=== PATIENT | male | born 1945 | race Asian ===

== ENCOUNTER 2018-07-17 10:30 | Emergency (ER) | payer OTHER ==
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
--- NOTE | 2018-07-17 10:50 | ER ---
Nurse's Notes [facility] Name: Pedro Ruelas Age: 72 yrs Sex: Male : 1945 Arrival Date: 07/17/2018 Time: 10:31 Bed 14 Private MD: Diagnosis: Dementia in other diseases classified elsewhere Presentation: 07/17 10:32 Presenting complaint: EMS states: pt was playing dominos at [facility], he threw the tw2 dominos on the floor, staff called because he was yelling saying he hurts. Transition of care: patient was received from another setting of care (long-term care facility), [facility]. Onset of symptoms was July 17, 2018. Risk Assessment: Do you want to hurt yourself or someone else? Patient reports no desire to harm self or others. Initial Sepsis Screen: Does the patient meet any 2 criteria? No. Patient's initial sepsis screen is negative. Does the patient have a suspected source of infection? No. Patient's initial sepsis screen is negative. Care prior to arrival: None. 10:32 Method Of Arrival: EMS: [facility] tw2 10:32 Acuity: ARACELI 4 tw2 Historical: - Allergies: 10:40 No Known Allergies; tw2 - Home Meds: 10:40 aspirin 81 mg Oral chew 1 tab once daily [Active]; atorvastatin 10 mg oral tab 1 tab tw2 once daily [Active]; donepezil 10 mg oral tab 1 tab once daily [Active]; escitalopram oxalate 10 mg oral tab 1 tab once daily [Active]; metoprolol tartrate 25 mg Oral tab 1 tab once daily [Active]; Namenda XR 14 mg oral CSpX 1 cap once daily [Active]; Provera 10 mg oral tab 5 tab once daily [Active]; Depakote Sprinkles 125 mg Oral cpSP 1 caps every 12 hours [Active]; - PMHx: 10:40 Hyperlipidemia; GERD; Alzheimers; tw2 - Immunization history:: Adult Immunizations up to date. - Social history:: Smoking status: Patient/guardian denies using tobacco. - Ebola Screening: : Patient denies travel to an Ebola-affected area in the 21 days before illness onset. Screenin:35 Abuse screen: Denies threats or abuse. Nutritional screening: No deficits noted. tw2 Tuberculosis screening: No symptoms or risk factors identified. Fall Risk Secondary diagnosis (15 points) Alzheimer's. Assessment: 10:40 General: Appears in no apparent distress. Behavior is calm, cooperative, appropriate tw2 for age. Pain: Unable to use pain scale. Patient appears quiet, calm. Neuro: Level of Consciousness is awake, alert, obeys commands, Oriented to person, place, situation. Cardiovascular: Heart tones S1 S2 Patient's skin is warm and dry. Respiratory: Airway is patent Respiratory effort is even, unlabored, Respiratory pattern is regular, symmetrical, Breath sounds are clear bilaterally. GI: No signs and/or symptoms were reported involving the gastrointestinal system. Abdomen is flat, Bowel sounds present X 4 quads. : No signs and/or symptoms were reported regarding the genitourinary system. EENT: No signs and/or symptoms were reported regarding the EENT system. Derm: No signs and/or symptoms reported regarding the dermatologic system. Musculoskeletal: Circulation, motion, and sensation intact. Range of motion: intact in all extremities. 10:50 Reassessment: spoke with SIDNEY Rizvi at [facility], they will arrange transportation tw2 back to their facility, report and update given to SIDNEY Rizvi at [facility] at this time. 11:15 Reassessment: Patient appears in no apparent distress at this time. No changes from previously documented assessment. Patient and/or family updated on plan of care and expected duration. Pain level reassessed. Patient is alert, oriented x 3, equal unlabored respirations, skin warm/dry/pink. 12:15 Reassessment: Patient appears in no apparent distress at this time. No changes from previously documented assessment. Patient and/or family updated on plan of care and expected duration. Pain level reassessed. Patient is alert, oriented x 3, equal unlabored respirations, skin warm/dry/pink. 12:16 Reassessment: SIDNEY Boyer called to speak with JO ANN at [facility] at this time, as pts ss transportation has not been arranged and pt has been ready to be discharged since 1050 this morning. Spoke with Estrella at [facility] and she will "get that done". Vital Signs: 10:34 BP 110 / 73; Pulse 99; Resp 17; Temp 98.6(O); Pulse Ox 100% on R/A; tw2 11:00 BP 122 / 72; Pulse 67; Resp 17; Pulse Ox 97% on R/A; tw2 11:58 BP 132 / 84; Pulse 67; Resp 17; Pulse Ox 98% on R/A; tw2 ED Course: 10:31 Patient arrived in ED. tw2 10:32 [facility] kb 10:32 Erasmo Cabral MD is Attending Physician. kb 10:33 Triage completed. tw2 10:34 Arm band placed on. tw2 10:34 Bed in low position. Call light in reach. Side rails up X2. Pulse ox on. NIBP on. Warm tw2 blanket given. 10:47 Rosalind Cota, SIDNEY is Primary Nurse. tw2 10:55 Awaiting transportation, Awaiting: back to [facility] at this time. tw2 10:55 No provider procedures requiring assistance completed. Patient did not have IV access tw2 during this emergency room visit. Administered Medications: No medications were administered Outcome: 10:49 Discharge ordered by . kb 10:57 Discharged to custodial. Report called to SIDNEY Rizvi tw2 10:57 Condition: stable 10:57 Discharge instructions given to patient, SIDNEY Rizvi at [facility] Instructed on discharge instructions, follow up and referral plans. 12:20 Patient left the ED. tw2 Signatures: Ashley Alvarez FNP-C ENGRAVED ROLLER INSPECTOR-Latoya Valentino RN RN ss Rosalind Cota RN RN tw2 Corrections: (The following items were deleted from the chart) 10:47 10:40 Neuro: Level of Consciousness is awake, alert, obeys commands, Oriented to tw2 person, tw2 12:19 12:16 Reassessment: called to speak with DON at [facility] at this time, as pts ss transportation has not been arranged and pt has been ready to be discharged since 1050 this morning. Spoke with Estrella, at [facility] and she will "get that done" ss
== END 2018-07-17 12:20 | disposition home or self-care (01) ==
LOC: ER 10:30
DX: G30.9 Alzheimer's disease, unspecified (principal); F02.80 Dementia in other diseases classified elsewhere, unspecified severity, without behavioral disturbance, psychotic disturbance, mood disturbance, and anxiety; E78.5 Hyperlipidemia, unspecified; K21.9 Gastro-esophageal reflux disease without esophagitis; Z79.82 Long term (current) use of aspirin
CPT/HCPCS: 99283